=== PATIENT | female | born 1965 | race Two or more races ===

== ENCOUNTER 2022-04-23 17:38 | Emergency (ER) | payer OTHER ==
[~2022-04-23] VITALS: Ht 152.4 cm; Wt 57.2 kg
[2022-04-23] MEDS ORDERED: GUAI5SYR4 GT (18:09)
[2022-04-23] MEDS ORDERED: CIPR5DRO EACHEYE (18:09)
--- NOTE | 2022-04-23 18:15 | NUR ---
Patient presents to the ER, C/O having productive cough for 2 days associated with bilateral eye redness. No fever or chills. No difficulty breathing. No vomiting or diarrhea. No chest pain. Patient A/O X 4, seen by the MD, no medication ordered to be administered in the ER. Patient cleared for discharge home, prescription sent to home pharmacy. Patient educated on medication administration, side effects and importance of compliance, verbalized understanding. Patient stable, left ambulatory with her daughter.
== END 2022-04-23 18:25 | disposition home or self-care (01) ==
LOC: ER 17:38
DX: J20.9 Acute bronchitis, unspecified (principal); E11.9 Type 2 diabetes mellitus without complications; Z86.73 Personal history of transient ischemic attack (TIA), and cerebral infarction without residual deficits
CPT/HCPCS: A4663